=== PATIENT | female | born 1930 | race Caucasian/White ===

== ENCOUNTER 2017-01-09 11:02 | Observation (INO) ==
[2017-01-09] MEDS ORDERED: IOPAMIDOL 100 ML BOTTLE IV ONE (11:03)
[2017-01-09] MEDS ORDERED: cefTRIAXone 1 GM VIAL IV ONE (11:52)
[2017-01-09 12:09] LABS: Basophils # (Auto) 0 K/mcL (0.0-0.3); Basophils % (Auto) 0.2 % (0.0-2.0); Eosinophils # (Auto) 0 K/mcL (0.0-0.7); Eosinophils % (Auto) 0.2 % (0.0-7.0); Granulocytes % (Auto) 83.1 % (38.0-78.0); Lymphocytes # (Auto) 0.7 K/mcL (1.5-4.8); Lymphocytes % (Auto) 7.4 % (15.5-49.0); Mean Cell Volume 99.1 fL (80.0-100.0); Mean Corpuscular HGB Conc 33.2 g/dL (31.0-36.0); Mean Corpuscular Hemoglobin 32.8 pg (26.0-34.0); Monocytes # (Auto) 0.8 K/mcL (0.1-0.9); Monocytes % (Auto) 9.1 % (1.0-12.0); Platelet Count 244 K/mcL (140-440); RBC 4.94 M/mcL (4.00-5.20); Red Cell Distribution Width 13.7 % (11.5-14.5)
[2017-01-09 12:16] LABS: Appearance,Urine CLEAR; Bacteria,Urine 0 /hpf (0); Bilirubin,Urine NEG (NEG); Color,Urine YELLOW; Glucose,Urine (UA) NORM (NORM); Ictotest,Urine NEG (NEG); Leukocyte Esterase,Urine NEG /mcL (NEG); Nitrate,Urine NEG (NEG); PH,Urine 8.5 (5.0-9.0); Specific Gravity,Urine 1.023 (1.000-1.035); Urine Blood 50 ery/mcL (<5); Urine RBC < 1 /hpf (0-1); Urine Squamous Epithelial Cell 1 /hpf (0-4); Urine WBC 2 /hpf (0-4); Urobilinogen,Urine 4 mg/dL (NORM)
[2017-01-09] MEDS: HYDROmorphone 2 MG/ML SYRINGE IV PRN ×2 (12:30→15:26)
[2017-01-09 12:32] LABS: ALT/SGPT 12 U/l (0-40); Albumin 3.8 gm/dL (3.2-5.2); Albumin/Globulin Ratio 0.9 (1.0-2.3); Alkaline Phosphatase 68 U/L (39-117); Blood Urea Nitrogen 20 mg/dl (8-23)
--- NOTE | 2017-01-09 12:34 | Cat Scan Report ---
CLINICAL INFORMATION: Fall. Left-sided flank pain. COMPARISON: None. TECHNIQUE: Axial images were obtained through the abdomen and pelvis. Sagittally and coronally reformatted images. FINDINGS: Fracture of the left 9th rib. This is nondisplaced. There is a left-sided pneumothorax. Chest CT scan is recommended. No left hemothorax. No pericardial fluid. There is minimal left-sided subcutaneous emphysema Right kidney is abnormal. There is a mid pole cyst which has a benign appearance. There is a mass at the right lower pole which measures approximately 3.5 cm. This is partially hyperdense. There is perinephric stranding. Findings are suspicious for renal cell cancer. Contrast-enhanced examination is recommended. Left kidney is negative except for a small exophytic cyst off the posterior mid pole. There is a 2.9 cm low-density mass in the left lobe of liver. This is circumscribed and is probably benign. Liver is otherwise negative. No posttraumatic abnormality. No perihepatic fluid. Spleen is negative. No splenomegaly. No perisplenic fluid. Negative pancreas. There is a 2 cm left adrenal nodule. Follow-up examination recommended. Uterus is not identified. There is a 4.5 cm left adnexal cystic mass. This may have a solid rim. Findings are suspicious for ovarian neoplasm. Ultrasound is recommended. No hemoperitoneum. No pneumoperitoneum. There is a mild compression deformity of the L2 vertebral body. This is probably chronic. Sacrum and pelvis are negative. No fracture. No lumbar transverse process fracture. Hips are negative. This examination was discussed with Dr. Huang, 01/09/2017, 12:15 IMPRESSION: 1. Left 9th rib fracture and left pneumothorax. Chest CT scan recommended 2. Right renal mass. Contrast-enhanced examination recommended 3. Left adrenal nodule, follow-up necessary 4. 4.5 cm predominantly cystic left adnexal mass. Ultrasound recommended. Interpreted and Authenticated by: Rafita Uribe 01/09/17
--- NOTE | 2017-01-09 13:32 | Cat Scan Report ---
CLINICAL INFORMATION: Fall. Abnormal abdomen and pelvic CT scan TECHNIQUE: Axial images through the chest, abdomen, and pelvis. 80 intravenous contrast material injected. Five minutes delayed phase images through the abdomen. Sagittally and coronally reformatted images. MIP reformatted images COMPARISON: Previous CT scan without contrast performed on 01/09/2017 FINDINGS: Again demonstrated is a fracture of the left 9th rib laterally. No significant displacement. No other left rib fractures. There is a left pneumothorax. Baseline chest x-ray recommended to better assess size and allow for follow-up studies. Thoracic aorta is negative. No mediastinal hematoma. There is extensive calcification of the thoracic aorta. There is extensive coronary artery calcification. The aorta is dilated at the thoracolumbar level without maximum AP diameter of 3.3 cm. Ascending thoracic aorta is not significantly dilated. Pulmonary arteries are normal. No pulmonary embolism. There are noncalcified pulmonary parenchymal nodules: 5 mm left upper lobe, image 24/123 5 mm left upper lobe, image 26/123 5 mm right lower lobe, image 57/123 In a low risk patient no follow-up is necessary. In a high-risk patient follow-up in 12 months is recommended. This patient is considered high risk due to subsequently described findings. No significant hemothorax. No pulmonary contusion. No pathologic hilar or mediastinal lymphadenopathy. No axillary adenopathy. No thoracic compression fractures. No lytic lesions. Sternum is negative. There is a small to moderate hiatal hernia. There is a 3.8 cm low-density abnormality in the left lobe of the liver. This is nonspecific no other focal intrahepatic abnormality. Liver contour is smooth. No evidence for cirrhosis. There are surgical clips consistent with previous cholecystectomy. There is marked dilatation of the common hepatic duct and common bile duct. Common bile duct measures 2.0 cm in cross-sectional diameter. There is no detectable pancreatic head mass. Pancreas is negative. No pancreatic mass. Pancreatic duct is not dilated. There is a 0.8 cm low-density abnormality in the lateral aspects of the spleen, image 100/238. This is nonspecific but may be benign. No splenomegaly. There is a left adrenal nodule. This measures 1.5 cm. This has fat attenuation on precontrast enhanced images and is considered benign There are benign renal cysts bilaterally. There is a solid mass in the inferior pole of the right kidney. This measures 4.0 cm maximally. There is infiltration of the renal capsule and stranding with in the right perirenal space. There is no renal vein thrombosis. Findings are very suspicious for right renal cancer. History of previous hysterectomy. There is a mass in the left adnexal region. This measures 4.9 x 4.5 x 4.0 cm. This is predominantly cystic but there appears to be a possible rim of solid tissue or posterior lateral limb the left. Ovarian neoplasm is possible. There is no free pelvic fluid. No pelvic or mesenteric adenopathy. Baseline ultrasound or MRI scan recommended. There is severe atherosclerotic disease. Abdominal aorta is densely calcified with maximum AP diameter of 2.7 cm. There is calcification of the origin of the celiac trunk and superior mesenteric artery without stenosis. Renal arteries are identified and are not stenotic. Colon is negative. There is mild diverticulosis. No detectable colonic mass. No appendicitis. There is a mild compression deformity of the L2 vertebral body. This appears chronic. Sacrum and pelvis are negative. No fracture. Hips are negative. 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 IMPRESSION: 1. Nondisplaced left 9th rib fracture. Small left pneumothorax. Baseline chest x-ray recommended 2. Noncalcified pulmonary parenchymal nodules as above. Follow-up necessary 3. Hiatal hernia 4. Benign left adrenal nodule 5. Previous cholecystectomy. Severely dilated common hepatic duct and common bile duct without significant intrahepatic bile duct dilatation. This is probably chronic. No pancreatic head mass 6. 4 cm right lower pole renal mass suspicious for renal cell carcinoma 7. 4.9 cm predominantly cystic mass in the left adnexal region. Neoplasm is not excluded and ultrasound or MRI scan recommended. Interpreted and Authenticated by: Rafita Uribe 01/09/17
--- NOTE | 2017-01-09 15:25 | Emergency Department Note ---
Fall HPI - General Chief Complaint: Fall Stated Complaint: left lower back pain, fall Time Seen by Provider: 01/09/17 11:03 Source: patient Mode of arrival: ambulatory - History of Present Illness HPI Narrative: 86-year-old female presents with multiple complaints. She decided to come in today because of increasing left flank pain. States she has had this left flank pain for last 3 or 4 weeks. Is progressively getting worse. When she moves certain ways the pain "catches her and takes her breath away ". States that happened this morning when she moved quickly and she thinks that is what caused her to fall. She fell and landed on that left side. The pain in that left side is worse since. No shortness of breath or difficulty breathing. She has had decreased appetite over the last month or so and her nephew who is with her has been concerned with failure to thrive type issues. When she fell today she denies hitting her head. No loss of consciousness. No head or neck pain. No dysuria or frequency. No fever or chills. - Related Data Home Medications Medication Instructions Recorded Confirmed multivitamin capsule 1 tab-cap PO QDAY 08/27/15 01/09/17 Previous Rx's Medication Instructions Recorded indapamide 2.5 mg tablet 2.5 mg PO QAM 90 Days #90 tab 09/03/16 levothyroxine 50 mcg tablet 50 mcg PO QDAY 90 Days #90 tab 09/03/16 metformin 500 mg tablet 500 mg PO QDAY 90 Days #90 tab 09/03/16 Allergies Allergy/AdvReac Type Severity Reaction Status Date / Time hydrochlorothiazide Allergy Unknown Rash Verified 09/03/16 09:12 losartan Allergy Unknown Rash Verified 09/03/16 09:12 Review of Systems All systems ED: reviewed and negative except as stated. Fall PMH - Past Medical History Medical history: Reports: hyperlipidemia, hypertension, thyroid disease, other ( Abnormal breast mammogram, hearing loss, hypothyroidism, hypertension, hyperlipidemia) Surgical history ED: Reports: cholecystectomy - Social History smoking status: Former smoker Alcohol use: Reports: None Drug use: Reports: none Physical Exam Limitations: no limitations General appearance: alert, other (Appears in pain. Holding left flank) Head: atraumatic, normocephalic, normal inspection Eye: Present: normal appearance. Absent: conjunctival injection ENT: normal exam, normal oropharynx, mucous membranes moist, TM's normal bilaterally, normal external ear exam Neck: Present: normal inspection, trachea midline. Absent: tenderness Chest: Present: normal inspection, symmetric chest wall rise Respiratory: Present: other (Lung sounds slightly diminished bases bilaterally otherwise clear throughout). Absent: respiratory distress, wheezes, accessory muscle use Cardiovascular: Present: regular rate, normal heart sounds Abdominal: Present: soft, other (+ left flank pain). Absent: distention, tenderness External: Present: other (urine dip + mod leuk, please see labs) Extremities: Present: normal inspection. Absent: pedal edema Neurological: Present: alert, oriented X3 Psychiatric: Present: normal affect, normal mood Skin: Present: warm, dry, intact, normal color Course Vital Signs Temperature 97.7 F 01/09/17 11:02 Pulse Rate 113 H 01/09/17 11:02 Respiratory Rate 18 01/09/17 11:02 Blood Pressure 162/93 01/09/17 11:02 Pulse Oximetry (%) 93 01/09/17 11:02 Temperature 97.7 F 01/09/17 11:02 Pulse Rate 105 H 01/09/17 16:02 Respiratory Rate 18 01/09/17 11:02 Blood Pressure 121/97 01/09/17 16:02 Pulse Oximetry (%) 95 01/09/17 16:02 Fall - MDM Narrative Medical decision making narrative: Patient was found to have renal masses as well as an adnexal mass and lung nodules. These were coincidental findings on CT. CT was originally done due to the left flank pain and hematuria. She was also found to have a left ninth rib fracture with pneumothorax. She also has a urinary tract infection. She was treated with IV Rocephin. She also required multiple doses of IV pain medication for pain management. The patient does live at home alone and has a significant problem getting around now the pain is severe I did talk to Dr. Henry the hospitalist as well as Dr. Marie with surgery. Dr. Henry will admit and Dr. Marie will consult. - Medical Records Medical records reviewed: Yes I reviewed the patient's medical records. - Lab Data Lab results reviewed: Yes I reviewed the patient's lab results. Result diagrams: 01/09/17 11:28 01/09/17 11:28 Lab Results 01/09/17 01/09/17 01/09/17 Range/Units 11:28 11:28 11:41 WBC 8.8 (4.5-11.0) K/mcL RBC 4.94 (4.00-5.20) M/mcL Hgb 16.2 H (12.0-15.0) g/dL Hct 48.9 H (36.0-48.0) % MCV 99.1 (80.0-100.0) fL MCH 32.8 (26.0-34.0) pg MCHC 33.2 (31.0-36.0) g/dL RDW 13.7 (11.5-14.5) % Plt Count 244 (140-440) K/mcL MPV 7.8 (7.4-10.4) fL Gran % 83.1 H (38.0-78.0) % Lymph % (Auto) 7.4 L (15.5-49.0) % [place] % (Auto) 9.1 (1.0-12.0) % Eos % (Auto) 0.2 (0.0-7.0) % Baso % (Auto) 0.2 (0.0-2.0) % Gran # 7.3 (1.8-8.0) K/mcL Lymph # (Auto) 0.7 L (1.5-4.8) K/mcL [place] # (Auto) 0.8 (0.1-0.9) K/mcL Eos # (Auto) 0 (0.0-0.7) K/mcL Baso # (Auto) 0 (0.0-0.3) K/mcL Sodium 133 (133-145) mmol/L Potassium 3.4 (3.3-5.1) mmol/L Chloride 87 L (96-108) mmol/L Carbon Dioxide 31 H (22-30) mmol/L Anion Gap 15.0 (8-16) BUN 20 (8-23) mg/dl Creatinine 1.0 (0.6-1.1) mg/dl GFR Calculation 51 Glucose 146 H (70-105) mg/dL Calcium 9.9 (8.6-10.4) mg/dl Total Bilirubin 0.7 (0.0-1.0) mg/dL AST 14 (0-37) U/l ALT 12 (0-40) U/l Alkaline Phosphatase 68 (39-117) U/L Total Protein 8.0 (5.9-8.4) gm/dL Albumin 3.8 (3.2-5.2) gm/dL Globulin 4.2 H (2.2-3.7) gm/dL Albumin/Globulin Ratio 0.9 L (1.0-2.3) Urine Color Yellow Urine Appearance Clear Urine pH 8.5 (5.0-9.0) Ur Specific [place] 1.023 (1.000-1.035) Urine Protein + (<25) mg/dL Urine Glucose (UA) Norm (NORM) mg/dL Urine Ketones Neg mg/dL Urine Occult Blood 50 A (<5) femi/mcL Urine Nitrate Neg (NEG) Urine Bilirubin Neg (NEG) mg/dL Urine Ictotest Neg (NEG) Urine Urobilinogen 4 A (NORM) mg/dL Ur Leukocyte Esterase Neg (NEG) /mcL Urine RBC < 1 (0-1) /hpf Urine WBC 2 (0-4) /hpf Ur Squamous Epith Cells 1 (0-4) /hpf Urine Bacteria 0 (0) /hpf - Radiology Data Radiology results reviewed: Yes I reviewed the patient's radiology results. Disposition Pt seen by [facility]/PA only: Yes Clinical Impression: Fall, Rib fracture, Pneumothorax, Renal mass, Adnexal mass, Lung nodules, Urinary tract infection, Inadequate pain control, Flank pain, Hiatal hernia Disposition: Xfer As Inpt ([facility]) Condition: Fair Referrals: Moi Mendenhall PA-C [Primary Care Provider] - Mohinder Marie MD [Physician] -
--- NOTE | 2017-01-09 16:01 | Ultrasound Report ---
CLINICAL INFORMATION: Abnormal CT scan. Renal mass. Left adnexal mass. TECHNIQUE: Grayscale and color flow Doppler spectral imaging COMPARISON: CT scan dated 01/09/2017 FINDINGS: Previous cholecystectomy. Common bile duct is dilated to 16 mm. No detectable choledocholithiasis. No intrahepatic bile duct dilatation. Liver measures 14.5 cm. Normal smooth liver contour. No evidence for cirrhosis. No focal hepatic mass. Previous CT scan demonstrated a low-density abnormality in the left lower liver. There is a corresponding simple cyst which measures 2.3 x 1.9 x 4.2 cm. Spleen is not enlarged. No intrasplenic abnormality identified. Normal hepatopedal portal venous flow. Pancreatic duct is mildly prominent but less than 4 mm. No pancreatic mass. Right kidney measures 10.7 x 4.7 x 5.9 cm. There is a simple cyst which measures 2.0 x 1.4 x 2.1 cm. There is a solid mass in the lower pole. This is complex and measures approximately 3.9 x 3.3 x 3.7 cm. Appearance is consistent with neoplasm. Left kidney measures 10.8 x 4.8 x 5.9 cm. No solid or cystic mass. No hydronephrosis. Abdominal aorta and inferior vena cava are negative. There is a simple cyst in the left adnexa. This measures 4.2 x 3.9 x 4.6 cm. No solid mass. No vascularity. In a postmenopausal female a simple cyst between 1 cm and 7 cm should be followed with yearly ultrasound. There is no free pelvic fluid. IMPRESSION: 1. 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 This measures 3.9 x 3.3 x 3.7 cm 2. Previous cholecystectomy. Extrahepatic bile duct dilatation 3. Simple cyst in the left adnexa measuring 4.2 x 3.9 x 4.6 cm. Yearly sonographic follow-up recommended Interpreted and Authenticated by: Rafita Uribe 01/09/17
--- NOTE | 2017-01-09 16:54 | XRay Report ---
INDICATION: Left pneumothorax, rib fracture TECHNIQUE: PA and lateral upright chest x-ray COMPARISON: Previous chest x-ray dated 09/30/[address] scan dated 01/09/2017 FINDINGS:Left 9th rib fracture is identified. There is a small left apical pneumothorax estimated at 8%. There is mild left basilar atelectasis. Lungs are otherwise negative. No pulmonary edema. No pulmonary congestion. No other rib fractures. Clavicle and scapula are negative bilaterally IMPRESSION: 1. Left 9th rib fracture. 2. Small left apical pneumothorax, estimated at 8% Interpreted and Authenticated by: Rafita Uribe 01/09/17
[2017-01-09] MEDS ORDERED: ONDANSETRON 4 MG/2 ML VIAL IV PRN (17:20)
[2017-01-09] MEDS ORDERED: ACETAMINOPHEN 325 MG TABLET PO PRN (17:20)
--- NOTE | 2017-01-09 22:43 | Internal Med History&Physical ---
Medical - H&P: HPI Patient information: Note initiated : 01/09/17 at 10:42 pm Service Date, if different from initiated Date: [] Patient: Dee Akins a 86 y/o F admitted on 01/09/17 for left lower back pain, fall. Chief Complaint: left flank pain History of present illness: Ms. Akins is a 86 year old F with a history of prediabetes on metformin, hypothyroidism on levothyroxine, hypertension on indapamide, untreated hyperlipidemia who presents to the ED with worsening of back pain. The patient started to have pain on the left flank region wrapping to the left upper abdomen a few weeks ago. It was fairly severe, she rates at 9/10 in intensity yesterday. She presents the ED today because she states that it's getting even worse. However she still quantifies it as 9/10. She did have a fall at about 4:00 this morning, she was turning around too fast and fell down. She went back to bed. She subsequently spoke to family stating that she is going back to bed she wasn't feeling well. Later in the day, she is having worsening of her left sided flank pain and she presents to the ED. However during my interview, she states she's had pain there, as noted, for several days. She does not recall a fall in the past few weeks. She's noted no rash or vesicles in that region on her skin. The pain is sharp, worse with inspiration. Holding still seems to make it better. It started associated with dyspnea or cough. She did have URI symptoms earlier in the week which is now resolved and did not seem to change the pain. She was forcefully coughing. She's had no nausea vomiting or diarrhea. She has not noted hematuria. She has had decreased appetite has not been hungry for the last several weeks. She's lost about 7 pounds, states her current weights about 145, while several months ago was about 152. In the emergency department, there is initial concern for possible renal stone. Noncontrast CT showed renal mass as well as evidence of pneumothorax. Repeat CT of the abdomen and pelvis with chest with contrast showed 4 cm right renal mass. She also has left ninth rib fracture and small pneumothorax. I was also told she had a UTI. When I see the patient in the ED, she is sitting comfortably in the gurney, having received pain medications with good relief. She is not dyspneic. Review of imaging data shows the right renal mass. She has 3 very small (5 mm) , scattered nodules in the lung, consistent with benign findings though of concern with her renal findings. She has a large ovarian cyst which was confirmed on ultrasound. Her urine analysis was only remarkable for hematuria, which could be expected with her renal mass. He is negative for leukocyte esterase, nitrite, had no significant white cells or pyuria on microscopic. The patient's being hospitalized for observation due to her pneumothorax, for further evaluation of her renal mass while she was here. Review of systems: Except as noted in history present illness, the remainder of 11 point systems is negative Medical - H&P: PMH Medical history: Abnormal mammogram of left breast (Chronic) Hearing loss (Chronic) Prediabetes (Chronic) Hypothyroidism (acquired) (Chronic) Hypertension, essential (Chronic) Hyperlipidemia (Chronic 12/22/10) Surgical history: Cataract surgery Cholecystectomy Hysterectomy Pertinent family history: Father had Alzheimer's disease. Siblings with coronary disease and Alzheimer's disease Social history: The patient is . She is a former smoker. She drinks occasional alcohol. Her nephew accompanies her to the emergency department Medical - H&P: Meds Home Medications Medication Instructions Recorded Confirmed Type multivitamin capsule 1 tab-cap PO QDAY 08/27/15 01/09/17 History indapamide 2.5 mg tablet 2.5 mg PO QAM 90 Days #90 tab 09/03/16 01/09/17 Rx levothyroxine 50 mcg tablet 50 mcg PO QDAY 90 Days #90 tab 09/03/16 01/09/17 Rx metformin 500 mg tablet 500 mg PO QDAY 90 Days #90 tab 09/03/16 01/09/17 Rx Aspirin [Tristin Chewable Aspirin] 81 mg PO DAILY 01/09/17 01/09/17 History Vit A,C & E/Lutein/Minerals 1 tab PO DAILY 01/09/17 01/09/17 History [Ocuvite] Allergies Allergy/AdvReac Type Severity Reaction Status Date / Time hydrochlorothiazide Allergy Unknown Rash Verified 09/03/16 09:12 losartan Allergy Unknown Rash Verified 09/03/16 09:12 Medical - H&P: Exam - Constitutional Vitals: Temp Pulse Resp BP Pulse Ox 98.0 F 100 H 18 144/91 92 01/09/17 20:17 01/09/17 17:15 01/09/17 20:17 01/09/17 20:17 01/09/17 22:26 Exam: General: Alert, in no acute distress HEENT: Normocephalic. Pupils are equally round and reactive to light. Sclera are anicteric. No conjunctival injection. Oropharynx is with moist mucous membranes, no lip or gum lesions. Tongue is midline. Neck: Supple, no meningismus. No thyromegaly. Chest: Clear to auscultation bilaterally with no rales or wheezes. No accessory muscle use. Palpation of the chest wall with focal tenderness approximately the ninth rib just posterior to the mid axillary line on the left. No overlying crepitus, no overlying ecchymoses. Cardiovascular: Irregularly irregular to my auscultation, no murmur appreciated , no gallop appreciated. Carotid pulses are 2+ without bruit. There is no lower extremity edema. JVP is normal. Abdomen: Soft, very mild left flank/upper quadrant tenderness without guarding or rebound. Active bowel sounds. No hepatosplenomegaly. Lymphatic: No cervical or supraclavicular lymphadenopathy. Skin: Warm, dry. No rash. Skin turgor is decreased Musculoskeletal: No joint erythema or tenderness. Normal range of motion in the upper and lower extremities. Strength 5/5 in upper and lower extremities. Digits without cyanosis or clubbing. Neuro: Alert, oriented X3. Cranial nerves II through XII grossly intact. Sensation intact to light touch. Psychiatric: Affect and orientation are normal. Good insight and appropriate concern for her new diagnoses. Medical - H&P: Reslt - Labs CBC & Chem 7: 01/09/17 11:28 01/09/17 11:28 Labs: Short CBC 01/09/17 Range/Units 11:28 WBC 8.8 (4.5-11.0) K/mcL Hgb 16.2 H (12.0-15.0) g/dL Hct 48.9 H (36.0-48.0) % Plt Count 244 (140-440) K/mcL BMP 01/09/17 11:28 Sodium 133 Potassium 3.4 Chloride 87 L Carbon Dioxide 31 H BUN 20 Creatinine 1.0 Glucose 146 H Calcium 9.9 Liver Function 01/09/17 Range/Units 11:28 Total Bilirubin 0.7 (0.0-1.0) mg/dL AST 14 (0-37) U/l ALT 12 (0-40) U/l Alkaline Phosphatase 68 (39-117) U/L Albumin 3.8 (3.2-5.2) gm/dL Urine 01/09/17 Range/Units 11:41 Urine Color Yellow Urine Appearance Clear Urine pH 8.5 (5.0-9.0) Ur Specific [place] 1.023 (1.000-1.035) Urine Protein + (<25) mg/dL Urine Glucose (UA) Norm (NORM) mg/dL - EKG Data -: EKG Reviewed by Myself (Atrial fibrillation without injury pattern) - Impressions Images were reviewed with Dr. Uribe of radiology. CT of the chest, abdomen and pelvis IMPRESSION: 1. Nondisplaced left 9th rib fracture. Small left pneumothorax. Baseline chest x-ray recommended 2. Noncalcified pulmonary parenchymal nodules as above. Follow-up necessary 3. Hiatal hernia 4. Benign left adrenal nodule 5. Previous cholecystectomy. Severely dilated common hepatic duct and common bile duct without significant intrahepatic bile duct dilatation. This is probably chronic. No pancreatic head mass 6. 4 cm right lower pole renal mass suspicious for renal cell carcinoma 7. 4.9 cm predominantly cystic mass in the left adnexal region. Neoplasm is not excluded and ultrasound or MRI scan recommended. CXR Less than 10% left pneumothorax Ultrasound IMPRESSION: 1. 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 This measures 3.9 x 3.3 x 3.7 cm 2. Previous cholecystectomy. Extrahepatic bile duct dilatation 3. Simple cyst in the left adnexa measuring 4.2 x 3.9 x 4.6 cm. Yearly sonographic follow-up recommended Medical - H&P: A/P (1) Pneumothorax Current visit: Yes Status: Acute (2) Renal mass Current visit: Yes Status: Acute (3) Rib fracture Current visit: Yes Status: Acute (4) Hypertension, essential Current visit: Yes Status: Chronic (5) Hypothyroidism (acquired) Current visit: Yes Status: Chronic (6) Prediabetes Current visit: Yes Status: Chronic - Narrative A/P Narrative: 86-year-old female presenting with left sided pain, worsening over the last few days, appears to a worsened after a fall this morning. Found to have rib fractures, small pneumothorax and incidental right renal mass. Also noted to have atrial fibrillation on exam, new diagnosis for her. Pneumothorax. Less than 10% by chest radiograph. May be secondary to her left ninth rib fracture in conjunction with fall this morning. Saturating well on room air. No current indication for chest tube. Plan: -Observation hospitalization -Telemetry monitoring -Serial chest radiographs Rib fracture. Chronicity unclear. Appears this did occur prior to her fall today, though that may have exacerbated things. Did discuss with radiology, no other fractures, no other rib lesions concerning for metastatic disease. Suspect this does explain her right-sided flank symptoms, possibly along with her pneumothorax. Pain was generally controlled with a small dose of hydromorphone. Plan: Pain control with by mouth hydrocodone, IV morphine as backup for breakthrough pain. Right renal mass. Concerning for renal carcinoma. Some extra capsular extension, no renal vein extension. Does have small nodules in the chest, in other settings would be considered low risk, consistent with benign process, but could represent metastatic disease. Plan: Percutaneous renal mass biopsy for tomorrow. Atrial fibrillation. New diagnosis. Do not see it previously reported in the chart. She is unaware of any palpitations or chest symptoms. Currently rate controlled Plan: Continue to monitor on telemetry. Following biopsy will discuss best method for chronic stroke prophylaxis. Urinary tract infection by report. Urinalysis noted in the chart, and urien dip noted on her bedside chart do not support evidence of urine infection. Plan: Will not continue antibiotics. Hypertension. Generally controlled on indapamide Plan: Continue. Hypothyroidism, levothyroxin. Plan: Continue. Check TSH given her atrial fibrillation. CODE STATUS is DO NOT RESUSCITATE.
[2017-01-09] MEDS: 0.9 % SODIUM CHLORIDE 10 ML SYRINGE IV SCH (22:56)
[2017-01-10] MEDS: 0.9 % SODIUM CHLORIDE 10 ML SYRINGE IV SCH ×4 (03:57→21:29)
[2017-01-10 05:23] LABS: Basophils # (Auto) 0 K/mcL (0.0-0.3); Basophils % (Auto) 0.3 % (0.0-2.0); Eosinophils # (Auto) 0.1 K/mcL (0.0-0.7); Eosinophils % (Auto) 0.9 % (0.0-7.0); Granulocytes % (Auto) 80.2 % (38.0-78.0); Lymphocytes # (Auto) 0.9 K/mcL (1.5-4.8); Lymphocytes % (Auto) 9.3 % (15.5-49.0); Mean Cell Volume 98.5 fL (80.0-100.0); Mean Corpuscular HGB Conc 33.6 g/dL (31.0-36.0); Mean Corpuscular Hemoglobin 33.1 pg (26.0-34.0); Monocytes # (Auto) 0.9 K/mcL (0.1-0.9); Monocytes % (Auto) 9.3 % (1.0-12.0); Platelet Count 232 K/mcL (140-440); RBC 4.56 M/mcL (4.00-5.20); Red Cell Distribution Width 13.6 % (11.5-14.5)
[2017-01-10 05:50] LABS: Blood Urea Nitrogen 17 mg/dl (8-23)
[2017-01-10] MEDS: LEVOTHYROXINE 50 MCG TABLET PO SCH (07:54)
[2017-01-10] MEDS: PANTOPRAZOLE 40 MG TABLET PO SCH (07:54)
--- NOTE | 2017-01-10 08:40 | XRay Report ---
CLINICAL INFORMATION: Trauma - history of left pneumothorax COMPARISON: 01/09/2017 two view chest x-ray. FINDINGS: The heart is normal for supine portable technique. Mediastinum and pulmonary vasculature are unremarkable. Tiny pneumothorax in the paramediastinal left upper lobe noted in semiupright position. Minor left basilar atelectasis appreciated. The known left-sided rib fractures are not well visualized. IMPRESSION: 1. Tiny, less than 5%, paramediastinal left pneumothorax 2. Minor atelectasis left base Interpreted and Authenticated by: Rafita Anthony 01/10/17
[2017-01-10] MEDS: INDAPAMIDE 2.5 MG TABLET PO SCH (09:04)
[2017-01-10] MEDS: HYDROcodone/APAP 5/325MG TABLET PO PRN ×2 (15:37→21:48)
--- NOTE | 2017-01-10 18:38 | Internal Med Progress Note ---
Medical - PN: Subj Patient information: Note initiated : 01/10/17 at 6:35 pm Service Date, if different from initiated Date: [] Patient: Dee Akins 86 y/o F admitted on 01/09/17 for left lower back pain, fall. Chief Complaint: follow up pneumothorax, atrial fibrillation Interval history: January 09: Admitted after presenting with left flank pain. Found to have rib fracture, small pneumothorax, new onset atrial fibrillation and newly diagnosed right renal tumor. January 10: Stable overnight. Pain under fairly good control. She now thinks that she would like to consider resection for a possible renal tumor. Had long discussion with the patient's grandson subsequently. He has concerns as does the rest of the family that she has had memory issues. That seems to explains her vagueness and sometimes avoiding direct answers. She also drinks on a regular basis, scotch daily. No known history of withdrawal. Her grandson also reported the patient has had several falls which she either does not recall or does not wish to tell others about. This likely explains etiology of the rib fracture, as her chest pain is been ongoing for a few weeks. Likely was exacerbated by the fall early on the morning of her presentation. Had a long discussion with to the patient's daughters on the phone and will be here later this evening. In the past she has expressed not wanting to have aggressive interventions. At this point, we'll need to sit down with the family to help decide on a course of action regards to 1) renal tumor and 2) anticoagulation for atrial fibrillation. - Constitutional Vitals: Vital Signs Temp Pulse Resp BP Pulse Ox 99.8 F H 107 H 16 131/74 93 01/10/17 16:00 01/10/17 16:00 01/10/17 16:00 01/10/17 16:00 01/10/17 12:19 Period Temp Pulse Resp BP Sys/Garcia Pulse Ox Last 24 Hr 98.0 F-99.8 F 96-110 16-18 99-145/66-91 92-93 Intake and Output 01/10/17 01/10/17 01/10/17 05:59 13:59 21:59 Intake Total 200 / 200 360 / 360 Output Total 300 / 300 250 / 250 Balance -100 / -100 110 / 110 Intake & Output: Intake & Output 01/10/17 01/10/17 01/10/17 05:59 13:59 21:59 Intake Total 200 / 200 360 / 360 Output Total 300 / 300 250 / 250 Balance -100 / -100 110 / 110 Intake: Oral 200 / 200 360 / 360 Output: Void Amount 300 / 300 250 / 250 Other: Meal Dinner Percent of Meal Consumed 50% Feeding Ability Independent Exam: General: Sitting up in bed in no acute distress Chest: Good aeration bilaterally. Mild tenderness over the left lower thorax at the mid axillary line. Cardiovascular: Irregularly irregular, no murmur, no edema Abdomen: Soft, nontender Neuro: Alert, oriented to herself, recalls her conversation from yesterday. Moves all extremities. Medical - PN: Obj Da - Labs CBC & Chem 7: 01/10/17 03:32 01/10/17 03:32 Labs: Abnormal Lab Results 01/10/17 01/10/17 01/10/17 03:32 03:32 03:32 Hgb 15.1 H Hct Gran % 80.2 H Lymph % (Auto) 9.3 L Lymph # (Auto) 0.9 L APTT 40 H Chloride 92 L Carbon Dioxide Glucose 121 H Globulin Albumin/Globulin Ratio Urine Occult Blood Urine Urobilinogen 01/09/17 01/09/17 01/09/17 11:41 11:28 11:28 Hgb 16.2 H Hct 48.9 H Gran % 83.1 H Lymph % (Auto) 7.4 L Lymph # (Auto) 0.7 L APTT Chloride 87 L Carbon Dioxide 31 H Glucose 146 H Globulin 4.2 H Albumin/Globulin Ratio 0.9 L Urine Occult Blood 50 A Urine Urobilinogen 4 A Meds: Medications Acetaminophen (Tylenol) 650 mg PO Q6HP PRN PRN Reason: PAIN/FEVER > 101 Hydrocodone Bitart/Acetaminophen ([place] 5/325mg) 1 tab PO Q4HP PRN PRN Reason: PAIN LEVEL 3-6 Last Admin: 01/10/17 15:37 Dose: 1 tab Enoxaparin Sodium (Lovenox) 40 mg SQ DAILY [facility] Indapamide (Lozol) 2.5 mg PO QAM [facility] Last Admin: 01/10/17 09:04 Dose: 2.5 mg Levothyroxine Sodium (Synthroid) 50 mcg PO ACB [facility] Last Admin: 01/10/17 07:54 Dose: 50 mcg Morphine Sulfate (Morphine) 2 mg IV Q2HP PRN PRN Reason: PAIN LEVEL > 6 Last Admin: 01/10/17 09:39 Dose: 2 mg Ondansetron HCl (Zofran) 4 mg IV Q4HP PRN PRN Reason: Nausea And Vomiting Pantoprazole Sodium (Protonix) 40 mg PO QAMAC [facility] Last Admin: 01/10/17 07:54 Dose: 40 mg Sodium Chloride (Saline Flush) 10 ml IV Q8 [facility] Last Admin: 01/10/17 14:22 Dose: Not Given - Impressions echocardiogram is pending Medical - PN: A/P - Time Spent With Patient Total time spent is greater than 50% in coordination of care (as documented) at patient's floor/unit and/or counseling patient: (1) Pneumothorax Status: Acute Current Visit: Yes (2) Renal mass Status: Acute Current Visit: Yes (3) Rib fracture Status: Acute Current Visit: Yes (4) Hypertension, essential Status: Chronic Current Visit: Yes (5) Hypothyroidism (acquired) Status: Chronic Current Visit: Yes (6) Prediabetes Status: Chronic Current Visit: Yes - Narrative A/P Narrative: 86-year-old female presenting with left sided pain, worsening over the last few days, appears to a worsened after a fall this morning. Found to have rib fractures, small pneumothorax and incidental right renal mass. Also noted to have atrial fibrillation on exam, new diagnosis for her. Pneumothorax. Improved on today's chest radiograph. Suspect secondary to her left ninth rib fracture in conjunction with fall this morning. Continues to saturate well on room air. Plan: Continue to observe and follow pneumothorax on serial chest radiographs. Continue with telemetry for now. Rib fracture. Now suspect secondary to fall somewhere in the past few weeks. She has frequent falls according to the family. Also suspect her fracture was exacerbated by the fall she had yesterday morning, early in the a.m. Pain has been fairly well controlled with oral hydrocodone, as needed morphine for breakthrough. Plan: Continue with pain control, incentive spirometer. 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 Small nodules in the chest, in other settings would be considered low risk, consistent with benign process, but could represent metastatic disease. Given uncertainty on her wish for aggressiveness of care, we'll not pursue percutaneous biopsy today. Plan: We'll discuss further with family once they all arrive tomorrow. Options include referral to urology for counseling on operative versus no operative management. Possibility of biopsy if desire to know final diagnosis but not wanting to undergo resection. Atrial fibrillation. New diagnosis. Remains rate controlled. We'll discuss with family risks and benefits of warfarin versus normal anticoagulants. Plan: Continue with telemetry, follow up echocardiogram results. Hypertension. Generally controlled on indapamide Plan: Continue. Hypothyroidism, on levothyroxine. Plan: Continue home medication, TSH ordered for morning.
[2017-01-11] MEDS: HYDROcodone/APAP 5/325MG TABLET PO PRN ×3 (03:49→14:17)
[2017-01-11 06:20] LABS: Basophils # (Auto) 0 K/mcL (0.0-0.3); Basophils % (Auto) 0.2 % (0.0-2.0); Eosinophils # (Auto) 0.1 K/mcL (0.0-0.7); Eosinophils % (Auto) 1.2 % (0.0-7.0); Granulocytes % (Auto) 77.3 % (38.0-78.0); Lymphocytes # (Auto) 1.3 K/mcL (1.5-4.8); Lymphocytes % (Auto) 11.9 % (15.5-49.0); Mean Cell Volume 97.8 fL (80.0-100.0); Mean Corpuscular HGB Conc 33.8 g/dL (31.0-36.0); Mean Corpuscular Hemoglobin 33.1 pg (26.0-34.0); Monocytes % (Auto) 9.4 % (1.0-12.0); Platelet Count 266 K/mcL (140-440); RBC 4.61 M/mcL (4.00-5.20); Red Cell Distribution Width 13.6 % (11.5-14.5)
[2017-01-11 06:54] LABS: Blood Urea Nitrogen 14 mg/dl (8-23)
--- NOTE | 2017-01-11 07:10 | XRay Report ---
CLINICAL INFORMATION: Follow left pneumothorax. History of trauma COMPARISON: 01/10/2017 FINDINGS: Mild cardiomegaly is unchanged. Mediastinum and pulmonary vessels are normal. The sliver-like pneumothorax in the left lung apex is seen less than 3%. Small left pleural effusion noted. Lungs are clear. Few left lower rib fractures are vaguely seen - as before IMPRESSION: Tiny (less then 3%) left apical pneumothorax continues to decrease. Interpreted and Authenticated by: Rafita Anthony 01/11/17
[2017-01-11] MEDS: PANTOPRAZOLE 40 MG TABLET PO SCH (07:23)
[2017-01-11] MEDS: LEVOTHYROXINE 50 MCG TABLET PO SCH (07:23)
[2017-01-11] MEDS: 0.9 % SODIUM CHLORIDE 10 ML SYRINGE IV SCH (07:24)
[2017-01-11] MEDS: INDAPAMIDE 2.5 MG TABLET PO SCH (08:50)
[2017-01-11] MEDS ORDERED: ENOXAPARIN 40 MG/0.4 ML SYRINGE SQ SCH (09:00)
--- NOTE | 2017-01-11 11:27 | Discharge Summary ---
Medical - DS: Prov Patient information: Note initiated : 01/11/17 at 11:24 am Service Date, if different from initiated Date: [] Patient: Dee Aikns 86 y/o F admitted on 01/09/17 for Left Lower Back Pain, Fall/Rib Fx, Pneumothorax. Chief Complaint: left flank pain Date of admission: 01/09/17 17:15 Discharge date: 01/11/17 Primary care physician: Moi Mendenhall Admitting clinician: Janette Hernandez Consults: 01/09/17 16:13 Consult to Physician [CONS] Stat Comment: Consulting Provider: Janette Hernandez Reason For Exam: Physician to Consult Discharging clinician: Janette Hernandez Medical - DS: Meds - Discharge Medications Prescriptions: Aspirin [Ecotrin] 325 mg PO DAILY #30 tab.ec HYDROcodone/APAP 5/325MG [[place] 5/325Mg] 1 tab PO Q4HP PRN #40 tab PRN Reason: Pain Active and Home Medications: Home Medications multivitamin capsule 1 tab-cap PO QDAY 08/27/15 [History Confirmed 01/09/17 Last Taken 01/09/17] indapamide 2.5 mg tablet 2.5 mg PO QAM 90 Days #90 tab 09/03/16 [Rx Confirmed Last Taken 01/09/17] levothyroxine 50 mcg tablet 50 mcg PO QDAY 90 Days #90 tab 09/03/16 [Rx Confirmed 01/09/17 Last Taken 01/09/17] metformin 500 mg tablet 500 mg PO QDAY 90 Days #90 tab 09/03/16 [Rx Confirmed Last Taken 01/09/17] Aspirin [Tristin Chewable Aspirin] 81 mg PO DAILY 01/09/17 [History Confirmed Last Taken 01/09/17] Vit A,C & E/Lutein/Minerals [Ocuvite] 1 tab PO DAILY 01/09/17 [History Confirmed 01/09/17 Last Taken 01/09/17] Medical - DS: Hosp Hospital course: The patient's an 86-year-old female who presented to the hospital with left flank pain. Evaluation revealed several new diagnoses. Rib fracture/Flank pain. Patient was found to have a left ninth rib fracture, further history was obtained during her hospitalization of frequent falls. She had had a fall about 4 AM on the day prior to presentation, but had been having pain for a few weeks. This was likely secondary to a fall with rib fracture. In the hospital she used her incentive spirometer, pain was controlled with oral pain medications. Pneumothorax. Pneumothorax was also identified on imaging, it was less than 10 % in volume. It continued to improve spontaneously during her observation. Suspect this was secondary to her acute fall on the day of presentation with small lung injury that healed with resolution of the pneumothorax. Was estimated to be less than 3% on day of discharge. Right renal tumor. Imaging for her flank pain revealed incidental right 4 cm tumor, consistent with renal cell carcinoma. There may have been some extracapsular extension. After long discussion with the patient as well as her daughters and grandchildren, this point they would like to pursue discussion with urology in regards to options including resection versus no surgical intervention. Arrangements for outpatient follow-up with Dr. Birch have been made at the time of discharge. Atrial fibrillation. Presentation the patient was an irregularly irregular rhythm on auscultation. EKG confirmed atrial fibrillation, new diagnosis for her. Echocardiogram was obtained, showing normal left ventricular size with mild concentric LVH and normal LV function. The left atrium was moderately dilated and the right atrium was mild to moderately dilated. Patient does have a history of hypertension, she had also been drinking on a daily basis. These likely were her risk factors along with lung injury for atrial fibrillation. She did not require rate controlling agents. Given her falls, the patient's family wanted to consider whether or not to use full anticoagulation. Her [id number] score was 4. I reviewed the average yearly risk of stroke with them (4%). They are considering the use of oral anticoagulation. Until then she'll be on a full dose aspirin. Lung nodules, adnexal findings. Patient had 3x5 mm lung nodules on chest CT. These will need followed up in 6 months given her renal findings protheses though if she does pursue nephrectomy, will need further staging to rule out metastatic disease. There is also adnexal finding, most likely cyst on CT, there was some concern could be neoplasia. Follow-up ultrasound showed findings consistent with simple cyst. Patient had been living alone. Her two daughters came in from [place]. Several grandsons were also available to discuss treatment options with her. At this point I've advised her to stop consuming alcohol with her atrial fibrillation and falls. I also advised her to stop smoking. She was seen by physical therapy, home health PT will be arranged and I've asked that she use her walker at home. She was also advised about not trying to "tough out" her pain to avoid splinting and development of pneumonia in the left lung. Discharge diagnosis: Pneumothorax Secondary discharge diagnosis: Left 9th rib fracture Atrial fibrillation (new) Renal tumor Time spent discussing smoking cessation with patient: 3 to 10 minutes - Time Spent with Patient Total time spent providing and/or coordinating discharge services: Greater than 30 minutes Medical - DS: Exam - Constitutional Vitals: Vital Signs Temp Pulse Pulse Resp BP BP BP 01/11/17 07:35 97.9 F 98 H 16 151/90 01/11/17 06:54 104 H 01/11/17 04:00 99.1 F H 18 152/97 01/11/17 00:00 98.4 F 18 164/97 01/10/17 20:29 98.4 F 18 144/76 01/10/17 16:00 99.8 F H 107 H 16 131/74 01/10/17 12:19 98.9 F 96 H 16 99/66 01/10/17 12:14 98.9 F 96 H 16 99/66 Pulse Ox 01/11/17 07:35 92 01/11/17 06:54 01/11/17 04:00 94 01/11/17 00:00 90 01/10/17 20:29 93 01/10/17 16:00 01/10/17 12:19 93 01/10/17 12:14 Intake and Output 01/10/17 01/11/17 01/11/17 21:59 05:59 13:59 Intake Total 360 / 360 600 / 600 1200 / 1200 Output Total 425 / 425 900 / 900 301 / 301 Balance -65 / -65 -300 / -300 899 / 899 Intake: Oral 360 / 360 600 / 600 1200 / 1200 Output: Urine Catheter Amount 100 / 100 Void Amount 425 / 425 900 / 900 201 / 201 Other: Meal Breakfast Percent of Meal Consumed 25% 90 Feeding Ability Independent # Voids 1 1 1 Weight 149 lb Additional comments: General: In no acute distress Chest: Good aeration bilaterally Cardiovascular: Irregularly irregular, no edema Abdomen: Soft, nontender Neuro: Alert, oriented 3, able to fully participate in her discussion on options of treatment. Medical - DS: Data Procedures and tests throughout hospitalization: Echocardiogram: Left ventricle is normal in size. There is mild concentric left ventricular hypertrophy. Left ventricular systolic function is normal. The left atrium is moderately dilated. The right atrium is mild to moderately dilated. There is mild mitral regurgitation. There is aortic root sclerosis/calcification. Chest x-ray on day of discharge IMPRESSION: Tiny (less then 3%) left apical pneumothorax continues to decrease CT of chest abdomen and pelvis at admission IMPRESSION: 1. Nondisplaced left 9th rib fracture. Small left pneumothorax. Baseline chest x-ray recommended 2. Noncalcified pulmonary parenchymal nodules as above. Follow-up necessary 3. Hiatal hernia 4. Benign left adrenal nodule 5. Previous cholecystectomy. Severely dilated common hepatic duct and common bile duct without significant intrahepatic bile duct dilatation. This is probably chronic. No pancreatic head mass 6. 4 cm right lower pole renal mass suspicious for renal cell carcinoma 7. 4.9 cm predominantly cystic mass in the left adnexal region. Neoplasm is not excluded and ultrasound or MRI scan recommended. Abdominal ultrasound at the time of admission IMPRESSION: 1. 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 This measures 3.9 x 3.3 x 3.7 cm 2. Previous cholecystectomy. Extrahepatic bile duct dilatation 3. Simple cyst in the left adnexa measuring 4.2 x 3.9 x 4.6 cm. Yearly sonographic follow-up recommended Labs on day of discharge: Labs from last 24 hours 01/11/17 01/11/17 03:45 03:45 WBC 11.0 RBC 4.61 Hgb 15.3 H Hct 45.1 MCV 97.8 MCH 33.1 MCHC 33.8 RDW 13.6 Plt Count 266 MPV 7.8 Gran % 77.3 Lymph % (Auto) 11.9 L [place] % (Auto) 9.4 Eos % (Auto) 1.2 Baso % (Auto) 0.2 Gran # 8.5 H Lymph # (Auto) 1.3 L [place] # (Auto) 1.0 H Eos # (Auto) 0.1 Baso # (Auto) 0 Sodium 133 Potassium 3.3 Chloride 89 L Carbon Dioxide 30 Anion Gap 14.0 BUN 14 Creatinine 0.9 GFR Calculation 58 Glucose 111 H Calcium 9.8 TSH 1.45 Medical - DS: A/P - Patient/Caregiver Discharge Instructions Activity: as per physical therapy, increase activity as tolerated Diet: Regular Diet Additional Instructions: Follow up with Dr Birch Urologist. It is important that you stop smoking. It is also important that you stop drinking alcohol to help prevent falls and interactions with your aspirin or any blood thinners. Use your walker while your ribs are healing. Use the incentive spirometer and take good deep breaths to help prevent pneumonia while your ribs are healing. - Problem Maintenance (1) Pneumothorax Status: Resolved Qualifiers: Pneumothorax type: traumatic Encounter type: initial encounter Qualified Code(s): S27.0XXA - Traumatic pneumothorax, initial encounter (2) Renal mass Status: Chronic (3) Rib fracture Status: Acute Qualifiers: Encounter type: initial encounter Rib fracture type: single rib Fracture type: closed Laterality: left Qualified Code(s): S22.32XA - Fracture of one rib, left side, initial encounter for closed fracture (4) Hypertension, essential Status: Chronic (5) Hypothyroidism (acquired) Status: Chronic (6) Prediabetes Status: Chronic - Follow up Plan Follow up with: Moi Mendenhall PA-C [Primary Care Provider] - 01/12/17 3:00 pm (Check in at 2 :45 pm) Nishant Birch MD [Physician] - 01/18/17 9:15 am (Check in at 9:00 AM) Disposition: Home Health Service Prognosis: Fair Rehab Potential: Fair Overall status at discharge: patient is not back to baseline
== END 2017-01-11 17:20 | disposition home health service (06) ==
LOC: ED 11:02 → INTOOBSV 17:15 → ICU 17:15
PROVIDERS: ADMIT Internal Medicine; ATTEND Internal Medicine